=== PATIENT | male | born 1980 | race Caucasian/White ===

== ENCOUNTER 2023-04-03 07:02 | Emergency (ER) | payer SELFPAY ==
[~2023-04-03] VITALS: Ht 172.7 cm; Wt 68.3 kg
[2023-04-03 07:58] VITALS: BP 148/95
== END 2023-04-03 07:59 | disposition home or self-care (01) ==
LOC: ED 07:02
DX: S71.111A Laceration without foreign body, right thigh, initial encounter (principal); W26.0XXA Contact with knife, initial encounter; Z88.0 Allergy status to penicillin
CPT/HCPCS: 12034; 99282-25